=== PATIENT | female | born 1965 | race Caucasian/White ===

== ENCOUNTER 2024-04-12 19:11 | Inpatient (IN) | payer OTHER ==
[~2024-04-12 19:11] MED LIST: Iopamidol-370 76% 500 ML MDV (1 ML CHARGE) ONE
[2024-04-12 20:07] LABS: #Basophils 0.03 10x3/uL (0.0-0.2); #Eosinphils Less than 0.03 10x3/uL (0.0-0.7); %Basophils 0.2 % (0.0-1.0); %Eosinophils 0.1 % (0.0-10.0); %Lymphocytes 6.5 % (21.0-51.0); %Monocytes 6.6 % (0.0-10.0); Hematocrit 33.6 % (36.0-47.0); Hemoglobin 11.1 g/dL (12.0-16.0); Mean Corpuscular Hemoglobin 31.1 pg (27.0-31.0); Mean Corpuscular Volume 94.1 fL (78.0-98.0); Mean Platelet Volume 8.2 fL (7.4-10.4); Platelet Count 243 10x3/uL (130-400); Red Blood Cell (RBC) Count 3.57 mill/uL (4.20-5.40)
[2024-04-12 20:13] LABS: BHCG - Serum Negative (NEGATIVE); Pregs Control Background? CLEAR/WHITE (CLR/WHITE); Pregs Control Bar Appear? YES (CONTROL BAR)
[2024-04-12 20:21] LABS: INR-International Normal Ratio 1.2; PTT 29.3 sec (22.9-36.1); Prothrombin Time 15.4 sec (12.0-14.7)
[2024-04-12 20:21] LABS: Lipase 5 U/L (8-78)
[2024-04-12 20:24] LABS: ALT (SGPT) 27 U/L (8-55); AST (SGOT) 20 U/L (5-34); Acetaminophen Less than 10 mcg/mL (10.0-30.0); Albumin 3.1 g/dL (3.5-5.0); Alcohol Less than 10.0 mg/dL (Less than 10); Alkaline Phosphatase 150 U/L (40-110); Anion Gap 18 mmol/L (10-20); BUN (Urea Nitrogen) 12 mg/dL (9.8-20.1); Bilirubin, Total 0.3 mg/dL (0.2-1.2); CK (CPK) 99 U/L (29-168); Calc. Creatinine Clearance 0 mL/min (70-130); Calcium 8.8 mg/dL (7.8-10.44); Carbon Dioxide 17 mmol/L (22-29); Chloride 96 mmol/L (98-107); Estimated GFR 53; Globulin 3.3 g/dL (2.4-3.5); Glucose 219 mg/dL (70-105); Potassium 4.6 mmol/L (3.5-5.1); Protein, Total 6.4 g/dL (6.0-8.3); Salicylate Less than 8.0 mg/dL (15.0-30.0); Sodium 126 mmol/L (136-145)
[2024-04-12 20:28] LABS: Troponin I Less than 0.010 ng/mL (< 0.028)
[2024-04-12 20:32] LABS: CRP,High Sensitivity (Inhouse) 20.92 mg/dL (< or = 0.5)
[2024-04-12] MEDS ORDERED: Acetaminophen 500 MG TAB ONE (21:12)
[2024-04-12 21:29] LABS: Actual Bicarbonate (HCO3v) 23.5 mEq/L (22-28); Analyzer IN Cardio ER; Calcium, Ionized (venous) 1.12 mmol/L (1.16-1.32); Chloride (VBG) 94 mmol/L (98-106); Hematocrit-VBG 35 % (36.0-47.0); Sodium 129 mmol/L (133-146); pH (venous) 7.356 (7.32-7.43)
[2024-04-12 21:34] LABS: Amphetamine Not Detected (NotDetected); Barbiturates Screen Not Detected (NotDetected); Benzodiazepine Screen Not Detected (NotDetected); Cocaine Metabolite Screen Not Detected (NotDetected); Methadone Not Detected (NotDetected); Methamphetamine Not Detected (NotDetected); Opiate Screen Not Detected (NotDetected); Oxycodone Screen Not Detected (NotDetected); Phencyclidine (PCP) Not Detected (NotDetected); THC/Cannabinoid Screen Not Detected (NotDetected); Tricyclic Screen Detected (NotDetected)
[2024-04-12 21:38] LABS: Bacteria/HPF 4+ HPF (None Seen); Bilirubin Negative (Negative); Blood, Urine 1+ (Negative); CAUTI Indications for Culture Alt mental st,lethar; Clarity Turbid (Clear); Glucose, Urine (Dipstick) Normal (Negative); Ketone, Urine Negative (Negative); Leukocyte 500 Leu/uL (Negative); Nitrite Negative (Negative); Protein, Urine (Dipstick) 30 mg/dL (Neg-Trace); RBC/HPF 0-3 HPF (0-3); Specific Gravity, Urine 1.011 (1.002-1.036); Squamous Epithelial 0-3 HPF (0-3); Urobilinogen Normal mg/dL (Less than 2); WBC/HPF Greater than 50 HPF (0-3); pH, Urine 5.5 (5.0-9.0)
[2024-04-12 21:41] LABS: Urine Culture Reflex Yes Yes
[2024-04-12] MEDS ORDERED: Cefepime 2 GM VIAL ONE (21:51)
[2024-04-12] MEDS ORDERED: Sodium Chloride 0.9% 100 ML ONE (21:51)
[2024-04-12] MEDS ORDERED: LevoFLOXacin 750 mg/D5W 150 ml Premix Bag ONE (22:39)
[2024-04-12 23:29] LABS: Lactic Acid 1.7 mmol/L (0.5-2.2)
[2024-04-13] MEDS: Vancomycin (BATCH) 2 GM in Premix 1 BAG IVPB SCH (00:40)
[2024-04-13 02:08] VITALS: BMI 32.5
[2024-04-13] MEDS ORDERED: Sodium Chloride 0.9% 1,000 ML IV SCH (03:30)
[2024-04-13] MEDS ORDERED: Acetaminophen 325 MG TAB PO PRN (03:56)
[2024-04-13] MEDS ORDERED: Dextrose 5% in Water 1,000 ML IV PRN (03:59)
[2024-04-13] MEDS ORDERED: Glucagon 1 MG/ML KIT IM PRN (03:59)
[2024-04-13] MEDS ORDERED: Dextrose 50% Abboject 50 ML SYRINGE SLOW IVP PRN (03:59)
[2024-04-13 04:51] LABS: Legionella Urinary Ag Negative (Negative); Strep pneumo Urine Ag NEGATIVE (NEGATIVE)
[2024-04-13] MEDS: guaiFENesin/DM ER ONE (05:30)
[2024-04-13] MEDS: Benzonatate 100 MG CAP ONE (05:30)
[2024-04-13 05:59] LABS: #Basophils 0.03 10x3/uL (0.0-0.2); %Basophils 0.3 % (0.0-1.0); %Eosinophils 0.3 % (0.0-10.0); %Monocytes 6.4 % (0.0-10.0); %Neutrophils 86.4 % (42.0-75.0); Hematocrit 30.8 % (36.0-47.0); Hemoglobin 10.1 g/dL (12.0-16.0); Mean Corpuscular HGB CONC 32.8 g/dL (32.0-36.0); Mean Corpuscular Hemoglobin 29.7 pg (27.0-31.0); Mean Corpuscular Volume 90.6 fL (78.0-98.0); Mean Platelet Volume 8.3 fL (7.4-10.4); Platelet Count 208 10x3/uL (130-400); RBC Distribution Width 13.1 % (11.5-14.5)
[2024-04-13 06:24] LABS: Anion Gap 8 mmol/L (10-20); BUN (Urea Nitrogen) 12 mg/dL (9.8-20.1); Calc. Creatinine Clearance 80 mL/min (70-130); Calcium 8.1 mg/dL (7.8-10.44); Carbon Dioxide 19 mmol/L (22-29); Chloride 104 mmol/L (98-107); Estimated GFR 71; Glucose 190 mg/dL (70-105); Potassium 4.4 mmol/L (3.5-5.1); Sodium 127 mmol/L (136-145)
[2024-04-13] MEDS: Lisinopril 10 MG TAB PO SCH (09:00)
[2024-04-13] MEDS ORDERED: Non-Formulary Item 1 EACH (Gabapentin [Neurontin] 800 MG Tablet) PO SCH (09:00)
[2024-04-13] MEDS ORDERED: Non-Formulary Item 1 EACH (Lamotrigine [Lamictal] 150 MG Tablet) PO SCH (09:00)
[2024-04-13] MEDS: guaiFENesin/DM ER PO SCH (10:05)
[2024-04-13] MEDS: Gabapentin 400 MG CAP PO SCH (10:08)
[2024-04-13] MEDS: Methocarbamol 500 MG TAB PO SCH (10:09)
[2024-04-13] MEDS: lamoTRIgine 100 MG TAB PO SCH (10:09)
[2024-04-13] MEDS: Aripiprazole 15 MG TAB PO SCH (10:09)
[2024-04-13] MEDS: Oxybutynin 5 MG TAB PO SCH (10:10)
[2024-04-13] MEDS: Heparin 5,000 UNITS/ML VIAL SC SCH (10:10)
[2024-04-13] MEDS: Atorvastatin Calcium 40 MG TAB PO SCH (10:10)
[2024-04-13] MEDS: Ondansetron PF 4 MG/2 ML Vial IVP PRN (10:12)
[2024-04-13] MEDS: Acetaminophen 500 MG TAB PO PRN (11:20)
[2024-04-13] MEDS: Amitriptyline HCl 100 MG TAB PO SCH (21:01)
[2024-04-13] MEDS: Zolpidem Tartrate 5 MG TAB PO SCH (21:01)
[2024-04-13] MEDS: LevoFLOXacin 750 mg/D5W 750 MG in Premix 1 BAG IVPB SCH (21:03)
[2024-04-13] MEDS: Benzonatate 100 MG CAP PO PRN (21:13)
[2024-04-14 05:38] LABS: #Basophils Less than 0.03 10x3/uL (0.0-0.2); %Basophils 0.3 % (0.0-1.0); %Eosinophils 1.6 % (0.0-10.0); %Lymphocytes 15.9 % (21.0-51.0); %Monocytes 9.1 % (0.0-10.0); %Neutrophils 72.4 % (42.0-75.0); Hematocrit 31.5 % (36.0-47.0); Hemoglobin 10.6 g/dL (12.0-16.0); Mean Corpuscular HGB CONC 33.7 g/dL (32.0-36.0); Mean Corpuscular Hemoglobin 30.8 pg (27.0-31.0); Mean Corpuscular Volume 91.6 fL (78.0-98.0); Mean Platelet Volume 8.8 fL (7.4-10.4); Platelet Count 214 10x3/uL (130-400); RBC Distribution Width 13.2 % (11.5-14.5); Red Blood Cell (RBC) Count 3.44 mill/uL (4.20-5.40)
[2024-04-14 05:50] LABS: Anion Gap 14 mmol/L (10-20); BUN (Urea Nitrogen) 9 mg/dL (9.8-20.1); Calc. Creatinine Clearance 86 mL/min (70-130); Calcium 8.6 mg/dL (7.8-10.44); Carbon Dioxide 18 mmol/L (22-29); Chloride 99 mmol/L (98-107); Estimated GFR 77; Glucose 115 mg/dL (70-105); Potassium 4.3 mmol/L (3.5-5.1); Sodium 127 mmol/L (136-145)
[2024-04-14] MEDS: Sodium Chloride 0.9% 1,000 ML IV SCH (09:53)
[2024-04-14] MEDS: Dextrose 5 %-0.45 % NaCl 1,000 ML IV SCH (17:41)
[2024-04-14] MEDS ORDERED: LevoFLOXacin 750 mg/D5W 750 MG in Premix 1 BAG IVPB SCH (23:00)
[2024-04-15 05:24] LABS: #Basophils Less than 0.03 10x3/uL (0.0-0.2); %Basophils 0.2 % (0.0-1.0); %Eosinophils 1.8 % (0.0-10.0); %Lymphocytes 14.3 % (21.0-51.0); %Monocytes 10.3 % (0.0-10.0); %Neutrophils 72.6 % (42.0-75.0); Hematocrit 28.6 % (36.0-47.0); Hemoglobin 9.6 g/dL (12.0-16.0); Mean Corpuscular HGB CONC 33.6 g/dL (32.0-36.0); Mean Corpuscular Hemoglobin 29.8 pg (27.0-31.0); Mean Corpuscular Volume 88.8 fL (78.0-98.0); Mean Platelet Volume 8.4 fL (7.4-10.4); Platelet Count 216 10x3/uL (130-400); Red Blood Cell (RBC) Count 3.22 mill/uL (4.20-5.40)
[2024-04-15 05:55] LABS: Anion Gap 10 mmol/L (10-20); BUN (Urea Nitrogen) 8 mg/dL (9.8-20.1); Calc. Creatinine Clearance 96 mL/min (70-130); Calcium 8.2 mg/dL (7.8-10.44); Carbon Dioxide 19 mmol/L (22-29); Chloride 99 mmol/L (98-107); Estimated GFR 88; Glucose 138 mg/dL (70-105); Potassium 3.9 mmol/L (3.5-5.1); Sodium 124 mmol/L (136-145)
[2024-04-15] MEDS: Ipratropium/Albuterol 3 ML NEB EZPAP PRN (08:17)
[2024-04-15] MEDS: HYDROcodone/Acetaminophen 10/325 mg Tablet PO SCH (11:52)
[2024-04-15] MEDS: Sodium Bicarbonate Tab 325 MG TAB PO SCH ×2 (12:59→20:08)
[2024-04-15] MEDS: Sodium Chloride 1 GM TAB PO SCH ×2 (13:00→20:09)
[2024-04-15] MEDS: predniSONE 20 MG TAB PO SCH (13:00)
[2024-04-15] MEDS: guaiFENesin ER 600 MG TAB PO SCH ×2 (14:00→20:09)
[2024-04-15] MEDS: HumaLOG 300 UNITS/3 ML VIAL SC PRN ×2 (16:49→20:10)
[2024-04-15] MEDS: HYDROcodone/Acetaminophen 10/325 mg Tablet PO PRN (19:02)
[2024-04-16] MEDS: predniSONE 20 MG TAB PO SCH (08:57)
[2024-04-16 11:26] LABS: #Basophils Less than 0.03 10x3/uL (0.0-0.2); %Basophils 0.1 % (0.0-1.0); %Eosinophils 0.3 % (0.0-10.0); %Lymphocytes 7.5 % (21.0-51.0); %Monocytes 7.2 % (0.0-10.0); %Neutrophils 84.4 % (42.0-75.0); Mean Corpuscular HGB CONC 33.3 g/dL (32.0-36.0); Mean Corpuscular Hemoglobin 30.1 pg (27.0-31.0); Mean Corpuscular Volume 90.4 fL (78.0-98.0); Mean Platelet Volume 8.4 fL (7.4-10.4); Platelet Count 229 10x3/uL (130-400); RBC Distribution Width 13.2 % (11.5-14.5); Red Blood Cell (RBC) Count 3.65 mill/uL (4.20-5.40)
[2024-04-16 11:48] LABS: Anion Gap 17 mmol/L (10-20); BUN (Urea Nitrogen) 8 mg/dL (9.8-20.1); Calc. Creatinine Clearance 89 mL/min (70-130); Calcium 9.2 mg/dL (7.8-10.44); Carbon Dioxide 20 mmol/L (22-29); Chloride 101 mmol/L (98-107); Estimated GFR 81; Glucose 208 mg/dL (70-105); Potassium 3.7 mmol/L (3.5-5.1); Sodium 134 mmol/L (136-145)
[2024-04-17 08:04] VITALS: TEMP 98.7
[2024-04-17 08:23] VITALS: BP 122/67
== END 2024-04-17 16:30 | disposition home or self-care (01) | DRG 871 ==
LOC: ERS 19:11 → T4-A 23:47 → OBSVTOIN 04-13 03:58
PROVIDERS: ADMIT Internal Medicine; ATTEND Internal Medicine
DX: A41.51 Sepsis due to Escherichia coli [E. coli] (principal); J96.01 Acute respiratory failure with hypoxia; N17.9 Acute kidney failure, unspecified; E87.1 Hypo-osmolality and hyponatremia; E87.20 Acidosis, unspecified; J44.1 Chronic obstructive pulmonary disease with (acute) exacerbation; J44.0 Chronic obstructive pulmonary disease with (acute) lower respiratory infection; N12 Tubulo-interstitial nephritis, not specified as acute or chronic; I10 Essential (primary) hypertension; B96.1 Klebsiella pneumoniae [K. pneumoniae] as the cause of diseases classified elsewhere; E11.9 Type 2 diabetes mellitus without complications; F17.210 Nicotine dependence, cigarettes, uncomplicated; Z85.3 Personal history of malignant neoplasm of breast; Z79.84 Long term (current) use of oral hypoglycemic drugs; Z79.51 Long term (current) use of inhaled steroids
CPT/HCPCS: 36415; 36416; 51701; 70450; 71045; 71275; 72125; 74177; 80048; 80053; 80306; 80307; 81001; 82550; 82805; 83605; 83690; 83880; 84300; 84484; 84703; 85025; 85610; 85730; 86141; 87040; 87077; 87086; 87149; 87186; 87449; 87633; 87798; 87899; 93005; 94640; 96365; 96366; 96367; 96375; 96376; G0378; J0692; J1644; J1815; J1956; J2405; J3370; J3490; J7042; J7050; J7512; J7620; Q9967

== ENCOUNTER 2024-07-18 13:35 | Outpatient (CLI) | payer OTHER ==
[~2024-07-18 13:35] MED LIST changes: -Iopamidol-370 76% 500 ML MDV (1 ML CHARGE) ONE; +Magnevist 469MG/ML 20 ML VIAL ONE
== END 2024-07-18 13:36 | disposition home or self-care (01) ==
LOC: MRI 13:35
PROVIDERS: ATTEND Internal Medicine
DX: R26.81 Unsteadiness on feet (principal); I67.89 Other cerebrovascular disease; R53.1 Weakness; R51.9 Headache, unspecified; Z85.3 Personal history of malignant neoplasm of breast
CPT/HCPCS: 70553; 76376

== ENCOUNTER 2024-08-18 12:52 | Outpatient (CLI) | payer OTHER ==
[~2024-08-18 12:52] MED LIST changes: +Iopamidol 370 76% 100 ML VIAL ONE; -Magnevist 469MG/ML 20 ML VIAL ONE
== END 2024-08-18 12:53 | disposition home or self-care (01) ==
LOC: CT 12:52
PROVIDERS: ATTEND Internal Medicine
DX: Z08 Encounter for follow-up examination after completed treatment for malignant neoplasm (principal); Z85.3 Personal history of malignant neoplasm of breast; I70.208 Unspecified atherosclerosis of native arteries of extremities, other extremity; R91.1 Solitary pulmonary nodule
CPT/HCPCS: 71260; Q9967

== ENCOUNTER 2024-08-19 03:38 | Inpatient (IN) | payer OTHER ==
[2024-08-19] MEDS ORDERED: Morphine 4 MG/ML VIAL ONE ×2 (04:54→07:13)
[2024-08-19] MEDS ORDERED: Promethazine HCl 25 MG/ML VIAL ONE ×2 (04:55→13:41)
[2024-08-19 05:15] LABS: #Basophils 0.06 10x3/uL (0.0-0.2); %Basophils 0.3 % (0.0-1.0); %Eosinophils 0.5 % (0.0-10.0); %Lymphocytes 10.3 % (21.0-51.0); %Monocytes 5.4 % (0.0-10.0); %Neutrophils 81.7 % (42.0-75.0); Hematocrit 37.7 % (36.0-47.0); Mean Corpuscular HGB CONC 34.5 g/dL (32.0-36.0); Mean Corpuscular Volume 86.9 fL (78.0-98.0); Mean Platelet Volume 8.4 fL (7.4-10.4); Platelet Count 365 10x3/uL (130-400); RBC Distribution Width 12.6 % (11.5-14.5); Red Blood Cell (RBC) Count 4.34 mill/uL (4.20-5.40)
[2024-08-19 05:37] LABS: Troponin I Less than 0.010 ng/mL (< 0.028)
[2024-08-19 05:40] LABS: ALT (SGPT) 388 U/L (8-55); AST (SGOT) 52 U/L (5-34); Albumin 3.8 g/dL (3.5-5.0); Alkaline Phosphatase 291 U/L (40-110); Anion Gap 18 mmol/L (10-20); BUN (Urea Nitrogen) 41 mg/dL (9.8-20.1); Bilirubin, Total 0.4 mg/dL (0.2-1.2); Calc. Creatinine Clearance 0 mL/min (70-130); Calcium 9.6 mg/dL (7.8-10.44); Carbon Dioxide 21 mmol/L (22-29); Chloride 86 mmol/L (98-107); Estimated GFR 21; Globulin 3.5 g/dL (2.4-3.5); Glucose 151 mg/dL (70-105); Lipase 14 U/L (8-78); Potassium 6.3 mmol/L (3.5-5.1); Protein, Total 7.3 g/dL (6.0-8.3); Sodium 119 mmol/L (136-145)
[2024-08-19] MEDS ORDERED: CALCIUM GLUC 1 GM/NS 50 ML IV Bag ONE ×2 (06:04→06:05)
[2024-08-19] MEDS ORDERED: Sodium Bicarb 50 MEQ/50 ML Abboject 8.4% SYRINGE ONE (06:04)
[2024-08-19] MEDS ORDERED: Insulin Regular, Human 100 UNIT/ML 10 ML VIAL ONE (06:05)
[2024-08-19] MEDS ORDERED: Ondansetron PF 4 MG/2 ML Vial ONE ×2 (07:13→11:39)
[2024-08-19] MEDS ORDERED: Ondansetron PF 4 MG/2 ML Vial IVP PRN ×2 (09:57→13:23)
[2024-08-19] MEDS ORDERED: Ipratropium/Albuterol 3 ML NEB NEB PRN ×2 (09:57→13:23)
[2024-08-19 10:01] LABS: Bacteria/HPF 3+ HPF (None Seen); Bilirubin Negative (Negative); Blood, Urine Negative (Negative); CAUTI Indications for Culture Pelvic or flank pain; Clarity Clear (Clear); Glucose, Urine (Dipstick) 150 mg/dL (Negative); Ketone, Urine Negative (Negative); Leukocyte 250 Leu/uL (Negative); Nitrite Negative (Negative); Protein, Urine (Dipstick) Negative (Neg-Trace); RBC/HPF 0-3 HPF (0-3); Specific Gravity, Urine 1.012 (1.002-1.036); Squamous Epithelial 0-3 HPF (0-3); Urobilinogen Normal mg/dL (Less than 2); WBC/HPF 21-50 HPF (0-3); pH, Urine 6.5 (5.0-9.0)
[2024-08-19 10:02] LABS: Urine Culture Reflex Yes Yes
[2024-08-19] MEDS ORDERED: Lidocaine 1% PF 5 ML VIAL ONE ×2 (11:21→11:39)
[2024-08-19 11:28] LABS: Anion Gap 18 mmol/L (10-20); BUN (Urea Nitrogen) 33 mg/dL (9.8-20.1); Calc. Creatinine Clearance 0 mL/min (70-130); Calcium 8.8 mg/dL (7.8-10.44); Carbon Dioxide 17 mmol/L (22-29); Chloride 95 mmol/L (98-107); Estimated GFR 32; Glucose 91 mg/dL (70-105); Potassium 5.3 mmol/L (3.5-5.1); Sodium 125 mmol/L (136-145)
[2024-08-19] MEDS ORDERED: HYDROmorphone 2 MG/ML VIAL SLOW IVP PRN (11:30)
[2024-08-19] MEDS ORDERED: Promethazine HCl 25 MG/ML VIAL IM PRN (11:30)
[2024-08-19] MEDS ORDERED: Ondansetron HCl/PF 4 MG/2 ML Vial IVP PRN (11:30)
[2024-08-19] MEDS ORDERED: fentaNYL PF 100 MCG/2 ML SYRINGE ONE ×2 (11:38→13:29)
[2024-08-19] MEDS ORDERED: CEFAZOLIN 2 GM VIAL ONE (11:38)
[2024-08-19] MEDS ORDERED: PROPOFOL 20 ML ONE (11:38)
[2024-08-19] MEDS ORDERED: PHENYLEPHRINE-NS 100 MCG/ML 10 ML SYRINGE ONE (11:39)
[2024-08-19] MEDS ORDERED: Rocuronium Bromide 10 MG/ML (10ML VIAL) ONE (11:39)
[2024-08-19] MEDS ORDERED: Midazolam HCl 2 mg/2 ml Vial ONE (11:51)
[2024-08-19] MEDS ORDERED: Bupivacaine 0.25% HCL 30 ML VIAL ONE (11:53)
[2024-08-19] MEDS ORDERED: EPINEPHrine 1 MG/ML VIAL ONE (11:53)
[2024-08-19] MEDS ORDERED: Etomidate 40 MG (20 mL) VIAL ONE (11:56)
[2024-08-19] MEDS ORDERED: Phenylephrine 10 MG/ML VIAL ONE (12:47)
[2024-08-19] MEDS ORDERED: SUGAMMADEX SODIUM 200 MG/2 ML VIAL ONE (13:03)
[2024-08-19] MEDS ORDERED: Dextrose 5% in Water 1,000 ML IV PRN (13:23)
[2024-08-19] MEDS ORDERED: Glucagon 1 MG/ML KIT IM PRN (13:23)
[2024-08-19] MEDS ORDERED: Dextrose 50% Abboject 50 ML SYRINGE SLOW IVP PRN (13:23)
[2024-08-19] MEDS ORDERED: Calcium Carbonate 500 MG ChewTAB PO PRN (13:23)
[2024-08-19] MEDS ORDERED: HYDROmorphone 0.5 MG/0.5 ML SYRINGE ONE (13:29)
[2024-08-19] MEDS ORDERED: fentaNYL 50 mcg/mL 1 mL Vial ONE (14:01)
[2024-08-19 15:00] VITALS: BMI 31.9
[2024-08-19] MEDS: Ketorolac Tromethamine 30 MG (1 mL) VIAL IVP SCH (18:00)
[2024-08-19] MEDS: Acetaminophen 325 MG TAB PO SCH (18:09)
[2024-08-19] MEDS: HYDROcodone/Acetaminophen 10/325 mg Tablet PO PRN (18:10)
[2024-08-19] MEDS: Sodium Chloride 0.9% 1,000 ML IV SCH (19:25)
[2024-08-19] MEDS: Dextrose 50% Abboject 50 ML SYRINGE SLOW IVP SCH (19:28)
[2024-08-19 20:15] LABS: Anion Gap 13 mmol/L (10-20); BUN (Urea Nitrogen) 24 mg/dL (9.8-20.1); Calc. Creatinine Clearance 56 mL/min (70-130); Calcium 8.4 mg/dL (7.8-10.44); Carbon Dioxide 21 mmol/L (22-29); Chloride 102 mmol/L (98-107); Estimated GFR 47; Glucose 219 mg/dL (70-105); Potassium 5.1 mmol/L (3.5-5.1); Sodium 131 mmol/L (136-145)
[2024-08-19] MEDS: cefOXitin 2 GM in Sodium Chloride 0.9% 100 ML IVPB SCH (21:57)
[2024-08-19] MEDS: Lactated Ringer's 1,000 ML IV SCH (21:58)
[2024-08-19] MEDS: Famotidine 20 MG TAB PO SCH (22:02)
[2024-08-20] MEDS: Enoxaparin 30 MG (0.3 mL) SYRINGE SC SCH (08:38)
[2024-08-20 08:39] LABS: Anion Gap 11 mmol/L (10-20); BUN (Urea Nitrogen) 13 mg/dL (9.8-20.1); Calc. Creatinine Clearance 82 mL/min (70-130); Calcium 8.1 mg/dL (7.8-10.44); Carbon Dioxide 21 mmol/L (22-29); Chloride 102 mmol/L (98-107); Estimated GFR 75; Glucose 107 mg/dL (70-105); Potassium 5.1 mmol/L (3.5-5.1); Sodium 129 mmol/L (136-145)
[2024-08-20 09:21] LABS: #Basophils Less than 0.03 10x3/uL (0.0-0.2); %Basophils 0.3 % (0.0-1.0); %Eosinophils 2.5 % (0.0-10.0); %Lymphocytes 29.7 % (21.0-51.0); %Monocytes 7.4 % (0.0-10.0); %Neutrophils 59.1 % (42.0-75.0); Hemoglobin 9.1 g/dL (12.0-16.0); Mean Corpuscular HGB CONC 31.4 g/dL (32.0-36.0); Mean Corpuscular Hemoglobin 29.6 pg (27.0-31.0); Mean Corpuscular Volume 94.5 fL (78.0-98.0); Mean Platelet Volume 8.2 fL (7.4-10.4); Platelet Count 235 10x3/uL (130-400); RBC Distribution Width 12.9 % (11.5-14.5); Red Blood Cell (RBC) Count 3.07 mill/uL (4.20-5.40)
[2024-08-20] MEDS ORDERED: Non-Formulary Item 1 EACH (Dexlansoprazole [Dexilant] 60 MG Cap.Dr.Bp) PO SCH (10:46)
[2024-08-20] MEDS: Pantoprazole DR 40 MG TAB PO SCH (12:23)
[2024-08-20] MEDS: cefTRIAXone\\ROCEPHIN 1 GM in Sodium Chloride 0.9% 100 ML IVPB SCH (12:24)
[2024-08-20] MEDS: Gabapentin 400 MG CAP PO SCH (14:51)
[2024-08-20] MEDS ORDERED: Non-Formulary Item 1 EACH (Gabapentin [Neurontin] 800 MG Tablet) PO SCH (15:00)
[2024-08-20 19:36] LABS: Anion Gap 11 mmol/L (10-20); BUN (Urea Nitrogen) 11 mg/dL (9.8-20.1); Calc. Creatinine Clearance 92 mL/min (70-130); Calcium 8.2 mg/dL (7.8-10.44); Carbon Dioxide 24 mmol/L (22-29); Chloride 101 mmol/L (98-107); Estimated GFR 86; Glucose 111 mg/dL (70-105); Potassium 4.6 mmol/L (3.5-5.1); Sodium 131 mmol/L (136-145)
[2024-08-21 06:20] LABS: #Basophils 0.03 10x3/uL (0.0-0.2); %Basophils 0.4 % (0.0-1.0); %Eosinophils 2.2 % (0.0-10.0); %Lymphocytes 29.9 % (21.0-51.0); %Monocytes 6.5 % (0.0-10.0); %Neutrophils 60.1 % (42.0-75.0); Hematocrit 28.9 % (36.0-47.0); Hemoglobin 9.2 g/dL (12.0-16.0); Mean Corpuscular HGB CONC 31.8 g/dL (32.0-36.0); Mean Corpuscular Hemoglobin 29.7 pg (27.0-31.0); Mean Corpuscular Volume 93.2 fL (78.0-98.0); Mean Platelet Volume 8.6 fL (7.4-10.4); Platelet Count 265 10x3/uL (130-400); RBC Distribution Width 12.5 % (11.5-14.5)
[2024-08-21 06:32] LABS: ALT (SGPT) 188 U/L (8-55); AST (SGOT) 36 U/L (5-34); Albumin 2.5 g/dL (3.5-5.0); Alkaline Phosphatase 252 U/L (40-110); Anion Gap 13 mmol/L (10-20); BUN (Urea Nitrogen) 9 mg/dL (9.8-20.1); Bilirubin, Total 0.1 mg/dL (0.2-1.2); Calc. Creatinine Clearance 92 mL/min (70-130); Calcium 7.8 mg/dL (7.8-10.44); Carbon Dioxide 21 mmol/L (22-29); Chloride 101 mmol/L (98-107); Estimated GFR 86; Globulin 2.4 g/dL (2.4-3.5); Glucose 163 mg/dL (70-105); Potassium 4.6 mmol/L (3.5-5.1); Protein, Total 4.9 g/dL (6.0-8.3); Sodium 130 mmol/L (136-145)
[2024-08-21 08:11] VITALS: BP 129/81; TEMP 97.8
[2024-08-21] MEDS: lamoTRIgine 100 MG TAB PO SCH (08:15)
[2024-08-21] MEDS: Aripiprazole 15 MG TAB PO SCH (08:15)
[2024-08-21] MEDS: Enoxaparin 40 MG (0.4 mL) SYRINGE SC SCH (08:17)
[2024-08-21] MEDS: Pantoprazole DR 40 MG TAB PO SCH (08:17)
[2024-08-21] MEDS ORDERED: Non-Formulary Item 1 EACH (Lamotrigine [Lamictal] 150 MG Tablet) PO SCH (09:00)
== END 2024-08-21 12:35 | disposition home or self-care (01) | DRG 674 ==
LOC: ERS 03:38 → SDC/OP 10:56 → OBS 14:47
PROVIDERS: ADMIT Surgery; ATTEND Surgery
PROC: 0WJF4ZZ Inspection of Abdominal Wall, Percutaneous Endoscopic Approach (ICD-10-PCS; principal; 2024-08-19)
PROC: 3E033XZ Introduction of Vasopressor into Peripheral Vein, Percutaneous Approach (ICD-10-PCS; 2024-08-19)
DX: N17.9 Acute kidney failure, unspecified (principal); E87.1 Hypo-osmolality and hyponatremia; K56.609 Unspecified intestinal obstruction, unspecified as to partial versus complete obstruction; N39.0 Urinary tract infection, site not specified; E87.5 Hyperkalemia; J44.9 Chronic obstructive pulmonary disease, unspecified; E78.5 Hyperlipidemia, unspecified; Z90.710 Acquired absence of both cervix and uterus; Z90.49 Acquired absence of other specified parts of digestive tract; Z79.899 Other long term (current) drug therapy; F17.210 Nicotine dependence, cigarettes, uncomplicated; F31.9 Bipolar disorder, unspecified; N18.30 Chronic kidney disease, stage 3 unspecified; E11.22 Type 2 diabetes mellitus with diabetic chronic kidney disease; I12.9 Hypertensive chronic kidney disease with stage 1 through stage 4 chronic kidney disease, or unspecified chronic kidney disease; D63.1 Anemia in chronic kidney disease
CPT/HCPCS: 36415; 36416; 71045; 71260; 74018; 74177; 80048; 80053; 81001; 82533; 83605; 83690; 83930; 84484; 85025; 86300; 86850; 86900; 86901; 87077; 87086; 87186; 93005; A4314; J0171; J0613; J0665; J0694; J0696; J1650; J1815; J1885; J2250; J2272; J2371; J2405; J2550; J2704; J3010; J7999; Q9967

== ENCOUNTER 2024-11-13 08:37 | Outpatient (CLI) | payer OTHER ==
[2024-11-13] MEDS ORDERED: Iopamidol 370 76% 100 ML VIAL ONE (12:04)
== END 2024-11-13 08:38 | disposition home or self-care (01) ==
LOC: NM 08:37
PROVIDERS: ATTEND Internal Medicine
DX: C50.919 Malignant neoplasm of unspecified site of unspecified female breast (principal)
CPT/HCPCS: 71260; 74160; 78306; 82565; A9503; Q9967

== ENCOUNTER 2024-11-22 14:15 | Outpatient (CLI) | payer OTHER | END 2024-11-22 14:16 | disposition home or self-care (01) | LOC: SCSRAD 14:15 | PROVIDERS: ATTEND Family Medicine | DX: S30.0XXA Contusion of lower back and pelvis, initial encounter (principal); Y92.009 Unspecified place in unspecified non-institutional (private) residence as the place of occurrence of the external cause; S32.10XA Unspecified fracture of sacrum, initial encounter for closed fracture | CPT/HCPCS: 72220 ==

== ENCOUNTER 2025-06-10 17:48 | Emergency (ER) | payer OTHER ==
[~2025-06-10 17:48] MED LIST changes: -Iopamidol 370 76% 100 ML VIAL ONE; +Iopamidol-370 76% 500 ML MDV (1 ML CHARGE) ONE
[2025-06-10 18:26] LABS: Bacteria/HPF 1+ HPF (None Seen); CAUTI Indications for Culture Dysuria,urgency,freq; Glucose, Urine (Dipstick) Normal (Negative); Leukocyte 25 Leu/uL (Negative); Protein, Urine (Dipstick) Negative (Neg-Trace); RBC/HPF None Seen HPF (0-3); Specific Gravity, Urine 1.007 (1.002-1.036); Urine Culture Reflex No No; WBC/HPF 0-3 HPF (0-3)
[2025-06-10] MEDS ORDERED: Ondansetron PF 4 MG/2 ML Vial ONE (19:36)
[2025-06-10] MEDS ORDERED: Ketorolac Tromethamine 30 MG (1 mL) VIAL ONE (19:36)
[2025-06-10 21:12] LABS: Hematocrit 31.6 % (36.0-47.0); Hemoglobin 11.0 g/dL (12.0-16.0); Mean Corpuscular Hemoglobin 30.5 pg (27.0-31.0); Mean Corpuscular Volume 87.5 fL (78.0-98.0); Platelet Count 340 10x3/uL (130-400); Red Blood Cell (RBC) Count 3.61 mill/uL (4.20-5.40); White Blood Cell (WBC) Count 16.66 10x3/uL (4.8-10.8)
[2025-06-10 21:28] LABS: ALT (SGPT) 14 U/L (Less than 34); AST (SGOT) 22 U/L (11-34); Albumin 3.8 g/dL (3.1-4.5); Alkaline Phosphatase 149 U/L (40-110); Anion Gap 15 mmol/L (10-20); BUN (Urea Nitrogen) 7 mg/dL (9.8-20.1); Bilirubin, Total 0.2 mg/dL (0.3-1.2); Calc. Creatinine Clearance 0 mL/min (70-130); Calcium 9.2 mg/dL (7.8-10.44); Carbon Dioxide 21 mmol/L (23-31); Chloride 95 mmol/L (98-107); Globulin 3.1 g/dL (2.4-3.5); Glucose 96 mg/dL (80-115); Potassium 4.8 mmol/L (3.5-5.1); Sodium 126 mmol/L (136-145)
[2025-06-10 21:32] LABS: Platelet Adequacy Comment Platelets Normal; Smudge Cells 8.6 %
[2025-06-11] MEDS ORDERED: Acetaminophen 325 MG TAB ONE (00:23)
[2025-06-11] MEDS ORDERED: Ondansetron PF 4 MG/2 ML Vial ONE (00:23)
[2025-06-11] MEDS ORDERED: cefTRIAXone (ROCEPHIN) 2 GM VIAL ONE (00:24)
== END 2025-06-11 01:18 | disposition home or self-care (01) ==
LOC: ERS 17:48
DX: N39.0 Urinary tract infection, site not specified (principal); E87.1 Hypo-osmolality and hyponatremia; D72.829 Elevated white blood cell count, unspecified; E11.9 Type 2 diabetes mellitus without complications; I10 Essential (primary) hypertension; J44.9 Chronic obstructive pulmonary disease, unspecified; F17.210 Nicotine dependence, cigarettes, uncomplicated
CPT/HCPCS: 71045; 74177; 80053; 81001; 83605; 85025; 87077; 87086; 87186; 96374; 96375; 96376; J0696; J1885; J2405; J3010; Q9967